=== PATIENT | male | born 1955 | race Caucasian/White ===

== ENCOUNTER 2019-05-02 18:28 | Emergency (ER) | payer OTHER ==
[~2019-05-02] VITALS: Ht 167.6 cm; Wt 68.2 kg
[~2019-05-02 18:28] MED LIST: DIPH50CA30 PO; LISI10TA2 PO; OMEP20CA16 PO
[2019-05-02 18:34] VITALS: Ht 167.6 cm; Wt 68.2 kg
[2019-05-03 12:45] VITALS: BP 149/94; PULSE 64; RESP 18
[2019-05-03] MEDS ORDERED: ACETAMINOPHEN 325 MG TAB PO ONE (13:00)
== END 2019-05-03 14:44 | disposition home or self-care (01) ==
LOC: E/R 18:28
DX: R45.851 Suicidal ideations (principal); I10 Essential (primary) hypertension; F17.210 Nicotine dependence, cigarettes, uncomplicated; R40.2142 Coma scale, eyes open, spontaneous, at arrival to emergency department; R40.2362 Coma scale, best motor response, obeys commands, at arrival to emergency department; R40.2252 Coma scale, best verbal response, oriented, at arrival to emergency department
CPT/HCPCS: 36415; 80053; 80307; 81001; 85025; Z7502; Z7610; 99283